=== PATIENT | male | born 1985 | race Caucasian/White ===

== ENCOUNTER 2022-03-12 19:16 | Emergency (ER) | payer MEDICAID ==
[~2022-03-12] VITALS: Ht 193 cm; Wt 107.7 kg
[2022-03-12 19:25] VITALS: BP 148/76
[2022-03-12] MEDS ORDERED: dexamethasone sod phosphate 10mg/ml inj IM STA (20:58)
[2022-03-12] MEDS ORDERED: AMOX-117 PO (21:00)
[2022-03-12] MEDS ORDERED: amox tr/potassium clavulanate 875/125mg TAB PO ONE (21:00)
== END 2022-03-12 21:16 | disposition home or self-care (01) ==
LOC: ER 19:17
DX: H66.92 Otitis media, unspecified, left ear (principal); Z88.1 Allergy status to other antibiotic agents
CPT/HCPCS: 96372; 99283; J1100